=== PATIENT | female | born 1970 | race Caucasian/White ===

== ENCOUNTER 2016-08-30 12:51 | Outpatient (CLI) | payer OTHER ==
--- NOTE | 2016-08-30 14:01 | DIAGNOSTIC IMAGING REPORT ---
PROCEDURE: XR HIP BILATERAL INDICATION: CERVICALGIA TECHNIQUE: AP view of the pelvis and hips with lateral views of the bilateral hips. COMPARISON: None. FINDINGS: RIGHT HIP: Osseous structures and joint spaces are normal. LEFT HIP: Osseous structures and joint spaces are normal. PELVIS: Osseous pelvis is normal. IMPRESSION: 1. Negative pelvis and bilateral hips.
== END 2016-08-30 23:00 ==
LOC: LAB SRH 12:51
DX: M54.2 Cervicalgia (principal); Z13.220 Encounter for screening for lipoid disorders
CPT/HCPCS: 90074; 92690